=== PATIENT | male | born 1955 | race Caucasian/White ===

== ENCOUNTER 2022-08-16 12:19 | Emergency (ER) | payer MEDICARE, MEDICAID, SELFPAY ==
--- NOTE | ~2022-08-16 | XR_ITS ---
EXAMINATION: XR tibia fibula LT 2V INDICATION: Left leg pain, initial encounter TECHNIQUE: Two views of the left tibia and fibula are obtained on four radiographs. COMPARISON: None available FINDINGS: There is an acute, traumatic, closed, oblique, comminuted fracture of the proximal fibula. The largest distal fracture fragment demonstrates one cortical width of anterior displacement. There is an approximately 5.2 x 1.1 cm separate triangular fracture fragment posterolaterally. There is an acute, traumatic, closed, spiral fracture of the distal approximately 3 cm above the tibial plafond. A 10 mm separate osseous fragment projects posterior to the fracture site. Calcified atherosclerosis is noted. Alignment at the knee and ankle is maintained. 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 IMPRESSION: 1. Comminuted fractures of the tibia and fibula as detailed above. Reviewed, dictated and finalized at location L.
--- NOTE | 2022-08-16 12:35 | ED.LOWEXIN ---
HPI - Extremity Injury (Lower) General Chief Complaint: Extremity Injury, Lower <Brigittejorje Cervantes APRN - Last Filed: 08/16/22 17:32> Stated Complaint: Fall Injury Left Knee <Brigitte SmartSegun Cervantes APRN - Last Filed: 08/16/22 17:32> Source: patient, RN notes reviewed and other (caregiver) <Brigitte Cervantes APRN - Last Filed: 08/16/22 17:32> Mode of arrival: wheelchair <Brigittejorje Cervantes APRN - Last Filed: 08/16/22 17:32> Limitations: clinical condition (intellectual disability) <Brigitte Cervantes APRN - Last Filed: 08/16/22 17:32> History of Present Illness HPI Narrative: Patient is a 66-year-old male who presents to the [facility] caregiver with complaints left lower leg pain. Patient has history of intellectual disability, but is able to answer questions appropriately. According to caregiver, patient's left knee gave out 2 hours ago, causing him to fall to the ground landing on his left lower leg. Patient points to his left lower leg and states that he has severe pain with movement and with bearing weight. States that he is unable to stand on the leg. Caregiver states that patient is usually ambulatory. Sensation is intact and he denies numbness. Pulses present and cap refill is normal. There is definitive swelling noted to the left anterior lower leg. Patient has full range of motion of the left knee. Caregiver denies known orthopedist for patient. <Brigitte eCrvantes APRN - Last Filed: 08/16/22 17:32> Related Data Home Medications: Home Medications Medication Instructions Recorded Confirmed alendronate 70 mg tablet 70 mg PO WEEKLY 08/16/22 08/16/22 aspirin 81 mg tablet,delayed 81 mg PO DAILY 08/16/22 08/16/22 release atorvastatin 20 mg tablet 20 mg PO DAILY 08/16/22 08/16/22 calcium polycarbophil 625 mg 625 mg PO DAILY 08/16/22 08/16/22 tablet (Fiber-Lax) cholecalciferol (vitamin D3) 50 50 mcg PO DAILY 08/16/22 08/16/22 mcg (2,000 unit) capsule famotidine 20 mg tablet 20 mg PO DAILY 08/16/22 08/16/22 metoprolol succinate 50 mg 50 mg PO DAILY 08/16/22 08/16/22 tablet,extended release 24 hr <Brigitte BingSegun Cervantes APRN - Last Filed: 08/16/22 17:32> Allergies/Adverse Reactions: Allergies Allergy/AdvReac Type Severity Reaction Status Date / Time No Known Allergies Allergy Unverified 08/16/22 12:34 <Brigitte Cervantes APRN - Last Filed: 08/16/22 17:32> Review of Systems Review of Systems: CONSTITUTIONAL: Denies fever, chills, or sweats. EYES: Denies visual changes, redness, or discharge. ENT: Denies otalgia and sore throat CARDIOVASCULAR: Denies chest pain, palpitations, or edema. RESPIRATORY: Denies cough or dyspnea. GASTROINTESTINAL: Denies abdominal pain, nausea, vomiting, or diarrhea. GENITOURINARY: Denies dysuria or hematuria. SKIN: Denies rash or itching. MUSCULOSKELETAL: Reports left lower leg pain. NEUROLOGIC: Denies headache, numbness, or weakness. Pertinent positives per HPI. <Brigitte Cervantes APRN - Last Filed: 08/16/22 17:32> PMFSH Comments At the time of my signature, I reviewed and agree with the nursing past medical, surgical, social, and family history. There is no relevant family history pertinent to the patient complaint. <Brigitte Cervantes APRN - Last Filed: 08/16/22 17:32> Exam Narrative: GENERAL: This is a well-nourished, well-developed patient, in no apparent distress. HEAD: normocephalic, atraumatic. EYES: PERRL. Sclera clear/white. Vision is grossly intact. EARS: External ears normal, auditory canals clear and without drainage, TMs normal without perforation. Hearing grossly intact. NOSE: External nose normal with no obvious nasal discharge, nares without redness, no rhinorrhea. THROAT: Mucous membranes moist, posterior pharynx clear. NECK: Neck supple, non-tender without lymphadenopathy, masses or thyromegaly. CARDIOVASCULAR: Regular rate and rhythm without murmurs, gallops, or rubs. RESPIRATORY: Clear to auscultat
[2022-08-16 12:36] VITALS: BP 139/77; PULSE 91; RESP 18; TEMP 37.5; O2SAT 97
--- NOTE | 2022-08-16 13:32 | PC.NURSE ---
1245- RN to RN reports receive from [facility]
--- NOTE | 2022-08-16 13:48 | PC.NURSE ---
PT HAS ARRIVED TO [facility] WITH [facility]. XRAYS HAVE BEEN COMPLETED. PT IS SITTING IN A POSITION OF COMFORT, MULTIPLE FX NOTED ON XRAY FILM. PT TO HAVE OCL PLACED, AWAITING RESULTS AT THIS TIME. WILL CONTINUE TO MONITOR.
--- NOTE | 2022-08-16 14:05 | PC.NURSE ---
JEANS WERE REMOVED WITHOUT DIFFICULTY. +PMS NOTED TO LEFT FOOT, OBVIOUS CREPITUS NOTED TO LLE, LATERAL DISTAL LEG. CAREGIVER REPORTS PT INITIALLY FELL AT 1030 THIS AM. PT REPORTS HE FELL DUE TO HIS KNEE GIVING OUT . PT DENIES ANY OTHER INJURY. OCL IS APPLIED. +PMS NOTED POST APPLICATION. PT IS PLACED IN GOWN. PT IS AWAITING RESULTS AT THIS TIME. WILL CONTINUE TO MONITOR.
--- NOTE | 2022-08-16 15:06 | PC.NURSE ---
BELONGINGS SHEET COMPLETED.
== END 2022-08-16 15:17 | disposition short-term general hospital (02) ==
PROVIDERS: Emergency Provider Nurse Practitioner; PCP Physician Assistant
DX: S82.832A Other fracture of upper and lower end of left fibula, initial encounter for closed fracture (principal); S82.302A Unspecified fracture of lower end of left tibia, initial encounter for closed fracture; W19.XXXA Unspecified fall, initial encounter; F79 Unspecified intellectual disabilities; Z79.82 Long term (current) use of aspirin; E78.00 Pure hypercholesterolemia, unspecified; K21.9 Gastro-esophageal reflux disease without esophagitis
CPT/HCPCS: 29505; 73590; 99215; G0463